=== PATIENT | female | born 1990 | race Caucasian/White ===

== ENCOUNTER 2020-02-25 11:58 | Day surgery (SDC) | payer BC, OTHER ==
[2020-02-25] MEDS ORDERED: Sodium Chloride 0.9% 1,000 ML IV ONE ×2 (12:14→13:07)
[2020-02-25] MEDS ORDERED: Ketorolac 30 MG/ML SDV IVPUSH ONE (12:14)
--- NOTE | 2020-02-25 12:20 | EDM.PDOC ---
ED HPI GENERAL MEDICAL PROBLEM - General Chief Complaint: Abdominal Pain Stated Complaint: STOMACH PAIN Time Seen by Provider: 02/25/20 12:00 Source of Information: Reports: Patient History Limitations: Reports: No Limitations - History of Present Illness INITIAL COMMENTS - FREE TEXT/NARRATIVE: HISTORY AND PHYSICAL: History of present illness: Patient is a 30-year-old female who presents to the emergency room with complaints of low pelvic discomfort that radiates to her umbilicus occasionally. She states the pain moves, occasionally in the left lower quadrant, then the right lower quadrant and will radiate to the umbilicus. The pain is been ongoing for approximately a week and describes it as intermittent. Sometimes the pain will last several minutes to hours, but has been consistent over the past 18 hours. She has a family history of ovarian cysts and patient denies any fever, chills, headache, change in vision, syncope or near syncope. Denies any chest pain, back pain, shortness of breath or cough. Denies any nausea, vomiting, diarrhea, constipation or dysuria. Has not noted any blood in urine or stool. Denies any concerns for STDs, vaginal discharge or lesions. Patient has been eating and drinking appropriately. Review of systems: As per history of present illness and below otherwise all systems reviewed and negative. Past medical history: As per history of present illness and as reviewed below otherwise noncontributory. Surgical history: As per history of present illness and as reviewed below otherwise noncontributory. Social history: See social history for further information Family history: As per history of present illness and as reviewed below otherwise noncontributory. Physical exam: General: Well-developed and well-nourished 30-year-old female. Alert and oriented. Nontoxic-appearing and in no acute distress. HEENT: Atraumatic, normocephalic, pupils equal and reactive bilaterally, negative for conjunctival pallor or scleral icterus, mucous membranes moist, trachea midline. No drooling or trismus noted. No meningeal signs. No hot potato voice noted. Lungs: Clear to auscultation, breath sounds equal bilaterally, chest nontender. Heart: S1S2, regular rate and rhythm without overt murmur Abdomen: Soft, nondistended, generalized tenderness to the left and right lower quadrants. + rebound tenderness. Negative for masses or hepatosplenomegaly. Negative for costovertebral tenderness. Pelvis: Stable nontender. Skin: Intact, warm, dry. No lesions or rashes noted. Extremities: Atraumatic, moves all extremities per self without difficulty or deficits, negative for cords or calf pain. Neurovascular unremarkable. Neuro: Awake, alert, oriented. Cranial nerves II through XII unremarkable. Cerebellum unremarkable. Motor and sensory unremarkable throughout. Exam nonfocal. Notes: She declines wanting anything for pain at this time, stating she took acetaminophen prior to arrival and is comfortable. Ultrasound shows no abnormalities, cysts or free fluid. Due to the diffuse abdominal pain and early leukocytosis I will get a CT of the abdomen and pelvis. Appendix appears slightly prominent in size surrounding inflammatory changes. I did re-evaluate the patient and she is more tender in the right lower quadrant now and becoming increasingly uncomfortable while laying flat. I did offer to give her some pain medication, she declines. Dr. Li, the general surgeon on-call was consulted on this case, he will review and come evaluate the patient. 1550: Dr Li here to talk/evaluate patient. Diagnostics: CBC, CMP, UA, HCGU, Lipase, Transvaginal Non-OB U/S, CT abdomen pelvis Therapeutics: IV fluids Impression: Appendicitis Plan: To OR with Dr Li Duration: Day(s): Location: Reports: Abdomen abd Pain Score (Numeric/FACES): 5 - Related Data Allergies Allergy/AdvReac Type Severity Reaction Status Date / Time Penicillins Allergy Nausea and Verified 02/25/20 12:12 Vomiting Home Meds: Home Meds norethindrone-e.estradioL-iron [Taytulla 1 mg-20 Mcg Capsule] 1 each PO DAILY 02/25/20 [History] Past Medical History HEENT History: Reports: None Cardiovascular History: Reports: None Respiratory History: Reports: Asthma Other Respiratory History: asthma as a child Gastrointestinal History: Reports: None Genitourinary History: Reports: Other (See Below) Other Genitourinary History: bladder surgery as a child, unknown type REMOTELY OPERATED VEHICLE History: Reports: None Musculoskeletal History: Reports: None Neurological History: Reports: None Psychiatric History: Reports: None Endocrine/Metabolic History: Reports: None Hematologic History: Reports: None Immunologic History: Reports: None Oncologic (Cancer) History: Reports: None Dermatologic History: Reports: Eczema - Past Surgical History Head Surgeries/Procedures: Reports: None Social & Family History - Family History Family Medical History: Noncontributory - Recreational Drug Use Recreational Drug Use: No ED ROS GENERAL - Review of Systems Review Of Systems: Comprehensive ROS is negative, except as noted in HPI. ED EXAM, GI/ABD - Physical Exam Exam: See Below (See dictation) Course - Vital Signs Last Recorded V/S: Last Vital Signs Temp 95.7 F L 02/25/20 12:06 Pulse 86 02/25/20 12:06 Resp 16 02/25/20 12:06 BP 115/72 02/25/20 12:06 Pulse Ox 98 02/25/20 12:06 - Orders/Labs/Meds Orders: Active Orders 24 hr Category Date Time Status Admission Status [Patient Status] [ADT] Stat ADT 02/25/20 15:59 Active Antiembolic Devices [RC] PER UNIT ROUTINE Care 02/25/20 16:12 Active Insert Urinary Catheter [OM.PC] Timed Care 02/25/20 16:12 Ordered Oxygen Therapy [RC] ASDIRECTED Care 02/25/20 16:12 Active RT Incentive Spirometry [RC] Q1HWA Care 02/25/20 16:12 Active Skin Preparation [RC] .PREOP Care 02/25/20 16:12 Active Urinary Catheter Assessment [RC] ASDIRECTED Care 02/25/20 16:12 Active Urinary Catheter Assessment [RC] ASDIRECTED Care 02/25/20 16:12 Active Urinary Catheter Assessment [RC] ASDIRECTED Care 02/25/20 16:12 Active Vital Signs [RC] PER UNIT ROUTINE Care 02/25/20 16:12 Active Nothing Per Oral Diet [DIET] Diet 02/25/20 Dinner Active Lactated Ringers [Ringers, Lactated] 1,000 ml Med 02/25/20 16:15 Active IV ASDIRECTED cefOXitin [Mefoxin in Dextrose,Iso-Osm 2 GM/50 ML] 2 gm Med 02/25/20 16:12 Active Premix Bag 1 bag IV ONETIME Antiembolic Hose [OM.PC] Routine Oth 02/25/20 16:12 Ordered Resuscitation Status Routine Resus Stat 02/25/20 16:12 Ordered Medication Orders Lactated Ringer's (Ringers, Lactated) 1,000 mls @ 125 mls/hr IV ASDIRECTED ANTHONY Last Admin: 02/25/20 16:30 Dose: 125 mls/hr Documented by: JOI Cefoxitin Sodium 2 gm/ Premix 50 mls @ 100 mls/hr IV ONETIME ONE Stop: 02/25/20 16:41 Last Admin: 02/25/20 16:30 Dose: 100 mls/hr Documented by: JOI Labs: Laboratory Tests 02/25/20 02/25/20 02/25/20 Range/Units 12:05 12:05 12:28 WBC 11.71 H (4.0-11.0) K/uL RBC 4.91 (4.30-5.90) M/uL Hgb 15.5 (12.0-16.0) g/dL Hct 45.8 (36.0-46.0) % MCV 93.3 (80.0-98.0) fL MCH 31.6 (27.0-32.0) pg MCHC 33.8 (31.0-37.0) g/dL RDW Std Deviation 41.1 (28.0-62.0) fl RDW Coeff of Ninoska 12 (11.0-15.0) % Plt Count 357 (150-400) K/uL MPV 9.30 (7.40-12.00) fL Neut % (Auto) 69.8 (48.0-80.0) % Lymph % (Auto) 21.0 (16.0-40.0) % Coke % (Auto) 5.5 (0.0-15.0) % Eos % (Auto) 3.5 (0.0-7.0) % Baso % (Auto) 0.2 (0.0-1.5) % Neut # (Auto) 8.2 H (1.4-5.7) K/uL Lymph # (Auto) 2.5 H (0.6-2.4) K/uL Coke # (Auto) 0.6 (0.0-0.8) K/uL Eos # (Auto) 0.4 (0.0-0.7) K/uL Baso # (Auto) 0.0 (0.0-0.1) K/uL Nucleated RBC % 0.0 /100WBC Nucleated RBCs # 0 K/uL Sodium (136-145) mmol/L Potassium (3.5-5.1) mmol/L Chloride (98-107) mmol/L Carbon Dioxide (21.0-32.0) mmol/L BUN (7.0-18.0) mg/dL Creatinine (0.6-1.0) mg/dL Est Cr Clr Drug Dosing mL/min Estimated GFR (MDRD) ml/min Glucose (74-106) mg/dL Calcium (8.5-10.1) mg/dL Total Bilirubin (0.2-1.0) mg/dL AST (15-37) IU/L ALT (14-63) IU/L Alkaline Phosphatase (46-116) U/L Total Protein (6.4-8.2) g/dL Albumin (3.4-5.0) g/dL Globulin (2.6-4.0) g/dL Albumin/Globulin Ratio (0.9-1.6) Lipase (73-393) U/L Urine Color YELLOW Urine Appearance CLEAR Urine pH 6.0 (5.0-8.0) Ur Specific Elfrida 1.020 (1.001-1.035) Urine Protein NEGATIVE (NEGATIVE) mg/dL Urine Glucose (UA) NEGATIVE (NEGATIVE) mg/dL Urine Ketones NEGATIVE (NEGATIVE) mg/dL Urine Occult Blood NEGATIVE (NEGATIVE) Urine Nitrite NEGATIVE (NEGATIVE) Urine Bilirubin NEGATIVE (NEGATIVE) Urine Urobilinogen 0.2 (<2.0) EU/dL Ur Leukocyte Esterase NEGATIVE (NEGATIVE) Urine HCG, Qual NEGATIVE (NEGATIVE) COVID-19 (PIETER) (NEGATIVE) 02/25/20 02/25/20 Range/Units 12:28 15:25 WBC (4.0-11.0) K/uL RBC (4.30-5.90) M/uL Hgb (12.0-16.0) g/dL Hct (36.0-46.0) % MCV (80.0-98.0) fL MCH (27.0-32.0) pg MCHC (31.0-37.0) g/dL RDW Std Deviation (28.0-62.0) fl RDW Coeff of Ninoska (11.0-15.0) % Plt Count (150-400) K/uL MPV (7.40-12.00) fL Neut % (Auto) (48.0-80.0) % Lymph % (Auto) (16.0-40.0) % Coke % (Auto) (0.0-15.0) % Eos % (Auto) (0.0-7.0) % Baso % (Auto) (0.0-1.5) % Neut # (Auto) (1.4-5.7) K/uL Lymph # (Auto) (0.6-2.4) K/uL Coke # (Auto) (0.0-0.8) K/uL Eos # (Auto) (0.0-0.7) K/uL Baso # (Auto) (0.0-0.1) K/uL Nucleated RBC % /100WBC Nucleated RBCs # K/uL Sodium 137 (136-145) mmol/L Potassium 3.8 (3.5-5.1) mmol/L Chloride 102 (98-107) mmol/L Carbon Dioxide 25.1 (21.0-32.0) mmol/L BUN 7 (7.0-18.0) mg/dL Creatinine 0.9 (0.6-1.0) mg/dL Est Cr Clr Drug Dosing 104.01 mL/min Estimated GFR (MDRD) > 60.0 ml/min Glucose 95 (74-106) mg/dL Calcium 9.2 (8.5-10.1) mg/dL Total Bilirubin 0.5 (0.2-1.0) mg/dL AST 24 (15-37) IU/L ALT 35 (14-63) IU/L Alkaline Phosphatase 68 (46-116) U/L Total Protein 7.9 (6.4-8.2) g/dL Albumin 3.8 (3.4-5.0) g/dL Globulin 4.1 H (2.6-4.0) g/dL Albumin/Globulin Ratio 0.9 (0.9-1.6) Lipase 108 (73-393) U/L Urine Color Urine Appearance Urine pH (5.0-8.0) Ur Specific Elfrida (1.001-1.035) Urine Protein (NEGATIVE) mg/dL Urine Glucose (UA) (NEGATIVE) mg/dL Urine Ketones (NEGATIVE) mg/dL Urine Occult Blood (NEGATIVE) Urine Nitrite (NEGATIVE) Urine Bilirubin (NEGATIVE) Urine Urobilinogen (<2.0) EU/dL Ur Leukocyte Esterase (NEGATIVE) Urine HCG, Qual (NEGATIVE) COVID-19 (PIETER) NEGATIVE (NEGATIVE) Meds: Medications Generic Name Dose Route Start Last Admin Trade Name Freq PRN Reason Stop Dose Admin Lactated Ringer's 1,000 mls @ 125 mls/hr 02/25/20 16:15 02/25/20 16:30 Ringers, Lactated IV 125 mls/hr ASDIRECTED ANTHONY Administration Cefoxitin Sodium 2 gm/ Premix 50 mls @ 100 mls/hr 02/25/20 16:12 02/25/20 16:30 IV 02/25/20 16:41 100 mls/hr ONETIME ONE Administration Discontinued Medications Generic Name Dose Route Start Last Admin Trade Name Freq PRN Reason Stop Dose Admin Sodium Chloride 1,000 mls @ 999 mls/hr 02/25/20 12:14 Normal Saline IV 02/25/20 13:14 STAT ONE Sodium Chloride 1,000 mls @ 999 mls/hr 02/25/20 13:07 02/25/20 13:25 Normal Saline IV 02/25/20 14:07 999 mls/hr STAT ONE Administration Iopamidol 75 ml 02/25/20 14:40 02/25/20 14:41 Isovue Multipack-370 (76%) IVPUSH 02/25/20 14:41 75 ml ONETIME STA Administration Ketorolac Tromethamine 30 mg 02/25/20 12:14 Toradol IVPUSH 02/25/20 12:15 ONETIME ONE Morphine Sulfate 2 mg 02/25/20 16:17 02/25/20 16:24 Morphine IVPUSH 02/25/20 16:18 2 mg ONETIME ONE Administration Ondansetron HCl 4 mg 02/25/20 16:17 02/25/20 16:23 Zofran IVPUSH 02/25/20 16:18 4 mg ONETIME ONE Administration Departure - Departure Time of Disposition: 16:33 Disposition: Home, Self-Care 01 Clinical Impression: Appendicitis Qualifiers: Appendicitis type: acute appendicitis Acute appendicitis type: with localized peritonitis Appendicitis gangrene presence: without gangrene Appendicitis perforation presence: without perforation Appendicitis abscess presence: without abscess Qualified Code(s): K35.30 - Acute appendicitis with localized peritonitis, without perforation or gangrene - Discharge Information Sepsis Event Note (ED) - Evaluation Sepsis Screening Result: No Definite Risk - Focused Exam Vital Signs: Vital Signs Temp Pulse Resp BP Pulse Ox 02/25/20 12:06 95.7 F L 86 16 115/72 98 - My Orders Last 24 Hours: My Active Orders 02/25/20 15:59 Admission Status [Patient Status] [ADT] Stat - Assessment/Plan Last 24 Hours: My Active Orders 02/25/20 15:59 Admission Status [Patient Status] [ADT] Stat
[2020-02-25 13:04] LABS: BLOOD UREA NITROGEN,BUN 7 mg/dL (7.0-18.0); CARBON DIOXIDE,CO2 25.1 mmol/L (21.0-32.0); CHLORIDE,CL 102 mmol/L (98-107); GLUCOSE RANDOM 95 mg/dL (74-106); LIPASE 108 U/L (73-393); POTASSIUM,K 3.8 mmol/L (3.5-5.1); SODIUM,NA 137 mmol/L (136-145)
--- NOTE | 2020-02-25 13:45 | US ---
Pelvic ultrasound: Multiple real-time images were obtained transvaginally. Comparison: No prior pelvic imaging. Findings: Uterus is anteverted. No myometrial abnormality is seen. Endometrial thickness is 6 mm which is within normal limits. Right and left ovaries show follicles without larger cyst or solid abnormality. No free fluid is appreciated. Measurements: Uterus: Length 6.8 cm, AP height 3.1 cm,transverse width 3.9 cm Right ovary: 2.0 x 1.2 x 2.1 cm Left ovary: 1.4 x 3.0 x 1.1 cm Impression: 1. No abnormality is identified on pelvic ultrasound exam. Diagnostic code #1 This report was dictated in MDT
[2020-02-25] MEDS ORDERED: Iopamidol 755 MG/ML 500 ML Multipack Bottle IVPUSH STA (14:40)
--- NOTE | 2020-02-25 15:12 | CT ---
CT abdomen and pelvis Technique: Multiple axial sections were obtained from above the dome of the diaphragm inferiorly through the pubic symphysis. Intravenous contrast was utilized. No oral contrast has been given. Comparison: Prior pelvic ultrasound exam performed earlier on the same day (12:50 PM). Findings: Visualized lung bases show nothing acute. Liver contains no focal parenchymal abnormality. Spleen appears normal. Adrenal glands show no nodule. Kidneys show symmetric contrast enhancement without hydronephrosis or mass. Pancreas shows no discrete abnormality. Aorta shows no aneurysm. Gallbladder contains no calcified gallstones. No retroperitoneal adenopathy or mesenteric abnormalities are seen. Appendix appears slightly prominent in size with surrounding inflammatory change which is felt compatible with early appendicitis. Multiple small lymph nodes are seen within the right lower abdomen most likely reactive from the appendicitis. No additional pelvic abnormality is seen. No free fluid is seen. Bone window settings were reviewed which appear within normal limits for the patient's age. Impression: 1. Mildly enlarged appendix with mild surrounding inflammatory change suspicious for early appendicitis. 2. No additional abnormality is seen on CT study of the abdomen and pelvis. Diagnostic code #5 This report was dictated in MDT
[2020-02-25] MEDS ORDERED: cefOXitin 2 GM in Premix Bag 1 BAG IV ONE (16:12)
[2020-02-25] MEDS ORDERED: Lactated Ringers 1,000 ML IV SCH (16:15)
[2020-02-25] MEDS ORDERED: Morphine 2 MG/ML SYRINGE IVPUSH ONE (16:17)
[2020-02-25] MEDS ORDERED: Ondansetron 4 MG/2 ML SDV IVPUSH ONE (16:17)
--- NOTE | 2020-02-25 16:18 | PCM.CONS ---
H&P History of Present Illness - General Date of Service: 02/25/20 Admit Problem/Dx: Admission Diagnosis/Problem Admission Diagnosis/Problem Appendicitis Source of Information: Patient History Limitations: Reports: No Limitations - History of Present Illness Initial Comments - Free Text/Narative: Patient is a 30-year-old female who presented to the emergency room today comp laining of lower abdominal pain. Patient states she has been having intermittent discomfort for the last 6 days. It became progressively worse last night about 6 PM. While she has been in the emergency room the pain has become more intense and migrated to the right lower quadrant. She hasn't really had any significant nausea or vomiting, although relates her appetite is poor. She did have something to eat about 8 AM. Denies any fever or chills. No change in bowel habits. Symptom Onset Date: 02/24/20 Symptom Onset Time: 18:00 Location: Reports: Abdomen Quality: Reports: Pressure, Throbbing Severity: Moderate Improves with: Reports: Rest Worsens with: Reports: Movement Associated Symptoms: Reports: Loss of Appetite. Denies: Nausea/Vomiting, Shortness of Breath, Syncope abd Pain Score (Numeric/FACES): 5 - Related Data Allergies/Adverse Reactions: Allergies Allergy/AdvReac Type Severity Reaction Status Date / Time Penicillins Allergy Nausea and Verified 02/25/20 12:12 Vomiting Home Medications: Home Meds norethindrone-e.estradioL-iron [Taytulla 1 mg-20 Mcg Capsule] 1 each PO DAILY 02/25/20 [History] Past Medical History HEENT History: Reports: None Cardiovascular History: Reports: None Respiratory History: Reports: Asthma Other Respiratory History: asthma as a child Gastrointestinal History: Reports: None Genitourinary History: Reports: Other (See Below) Other Genitourinary History: bladder surgery as a child, unknown type COMMUNITY RELATIONS LIAISON History: Reports: None Musculoskeletal History: Reports: None Neurological History: Reports: None Psychiatric History: Reports: None Endocrine/Metabolic History: Reports: None Hematologic History: Reports: None Immunologic History: Reports: None Oncologic (Cancer) History: Reports: None Dermatologic History: Reports: Eczema - Past Surgical History Head Surgeries/Procedures: Reports: None Social & Family History - Family History Family Medical History: Noncontributory - Recreational Drug Use Recreational Drug Use: No H&P Review of Systems - Review of Systems: Review Of Systems: See Below General: Reports: Decreased Appetite. Denies: Fever, Chills HEENT: Reports: No Symptoms Pulmonary: Denies: Shortness of Breath, Wheezing, Pleuritic Chest Pain Cardiovascular: Denies: Chest Pain, Palpitations, Dyspnea on Exertion Gastrointestinal: Reports: Abdominal Pain, Anorexia, Decreased Appetite. Denies: Black Stool, Bloody Stool, Constipation, Diarrhea, Difficulty Swallowi ng, Distension, Flatus, Hematemesis, Hematochezia Genitourinary: Denies: Dysuria, Frequency, Burning, Pain, Urgency Musculoskeletal: Reports: No Symptoms Skin: Denies: Cyanosis, Jaundice, Mottled, Pallor, Diaphoresis Psychiatric: Reports: No Symptoms Neurological: Reports: No Symptoms Hematologic/Lymphatic: Reports: No Symptoms Immunologic: Reports: No Symptoms Exam - Exam Exam: See Below - Vital Signs Vital Signs: Last Vital Signs Temp 95.7 F L 02/25/20 12:06 Pulse 86 02/25/20 12:06 Resp 16 02/25/20 12:06 BP 115/72 02/25/20 12:06 Pulse Ox 98 02/25/20 12:06 Weight: 170 lb - Exam General: Alert, Oriented, Cooperative, Mild Distress HEENT: Conjunctiva Clear, Nares Patent, Pupils Equal, Pupils Reactive. No: Scleral Icterus Neck: Supple, Trachea Midline Lungs: Clear to Auscultation, Normal Respiratory Effort Cardiovascular: Regular Rate, Regular Rhythm, Normal S1, Normal S2. No: Bradycardia, Tachycardia, Systolic Murmur GI/Abdominal Exam: Soft, No Distention, Rebound, Tender (Right lower quadrant over McBurney's point), Abnormal Bowel Sounds (Hypoactive). No: Guarding, Rigid, Hernia, Mass, Hepatomegaly (Female) Exam: Deferred Rectal (Female) Exam: Deferred Back Exam: Normal Inspection Extremities: Normal Inspection, Normal Range of Motion, Non-Tender Peripheral Pulses: 4+: Posterior Tibial (L), Posterior Tibial (R), Dorsalis Pedis (L), Dorsalis Pedis (R) Skin: Warm, Dry, Intact Neuro Extensive - Mental Status: Alert, Oriented x3, Normal Mood/Affect, Normal Cognition Psychiatric: Alert, Normal Affect, Normal Mood - Patient Data Lab Results Last 24 hrs: Laboratory Results - last 24 hr 02/25/20 02/25/2020 Range/Units 12:05 12:05 12:28 WBC 11.71 H (4.0-11.0) K/uL RBC 4.91 (4.30-5.90) M/uL Hgb 15.5 (12.0-16.0) g/dL Hct 45.8 (36.0-46.0) % MCV 93.3 (80.0-98.0) fL MCH 31.6 (27.0-32.0) pg MCHC 33.8 (31.0-37.0) g/dL RDW Std Deviation 41.1 (28.0-62.0) fl RDW Coeff of Ninoska 12 (11.0-15.0) % Plt Count 357 (150-400) K/uL MPV 9.30 (7.40-12.00) fL Neut % (Auto) 69.8 (48.0-80.0) % Lymph % (Auto) 21.0 (16.0-40.0) % Mineral % (Auto) 5.5 (0.0-15.0) % Eos % (Auto) 3.5 (0.0-7.0) % Baso % (Auto) 0.2 (0.0-1.5) % Neut # (Auto) 8.2 H (1.4-5.7) K/uL Lymph # (Auto) 2.5 H (0.6-2.4) K/uL Mineral # (Auto) 0.6 (0.0-0.8) K/uL Eos # (Auto) 0.4 (0.0-0.7) K/uL Baso # (Auto) 0.0 (0.0-0.1) K/uL Nucleated RBC % 0.0 /100WBC Nucleated RBCs # 0 K/uL Sodium (136-145) mmol/L Potassium (3.5-5.1) mmol/L Chloride (98-107) mmol/L Carbon Dioxide (21.0-32.0) mmol/L BUN (7.0-18.0) mg/dL Creatinine (0.6-1.0) mg/dL Est Cr Clr Drug Dosing mL/min Estimated GFR (MDRD) ml/min Glucose (74-106) mg/dL Calcium (8.5-10.1) mg/dL Total Bilirubin (0.2-1.0) mg/dL AST (15-37) IU/L ALT (14-63) IU/L Alkaline Phosphatase (46-116) U/L Total Protein (6.4-8.2) g/dL Albumin (3.4-5.0) g/dL Globulin (2.6-4.0) g/dL Albumin/Globulin Ratio (0.9-1.6) Lipase (73-393) U/L Urine Color YELLOW Urine Appearance CLEAR Urine pH 6.0 (5.0-8.0) Ur Specific [place] 1.020 (1.001-1.035) Urine Protein NEGATIVE (NEGATIVE) mg/dL Urine Glucose (UA) NEGATIVE (NEGATIVE) mg/dL Urine Ketones NEGATIVE (NEGATIVE) mg/dL Urine Occult Blood NEGATIVE (NEGATIVE) Urine Nitrite NEGATIVE (NEGATIVE) Urine Bilirubin NEGATIVE (NEGATIVE) Urine Urobilinogen 0.2 (<2.0) EU/dL Ur Leukocyte Esterase NEGATIVE (NEGATIVE) Urine HCG, Qual NEGATIVE (NEGATIVE) COVID-19 (PIETER) (NEGATIVE) 02/25/20 02/25/20 Range/Units 12:28 15:25 WBC (4.0-11.0) K/uL RBC (4.30-5.90) M/uL Hgb (12.0-16.0) g/dL Hct (36.0-46.0) % MCV (80.0-98.0) fL MCH (27.0-32.0) pg MCHC (31.0-37.0) g/dL RDW Std Deviation (28.0-62.0) fl RDW Coeff of Ninoska (11.0-15.0) % Plt Count (150-400) K/uL MPV (7.40-12.00) fL Neut % (Auto) (48.0-80.0) % Lymph % (Auto) (16.0-40.0) % Mineral % (Auto) (0.0-15.0) % Eos % (Auto) (0.0-7.0) % Baso % (Auto) (0.0-1.5) % Neut # (Auto) (1.4-5.7) K/uL Lymph # (Auto) (0.6-2.4) K/uL Mineral # (Auto) (0.0-0.8) K/uL Eos # (Auto) (0.0-0.7) K/uL Baso # (Auto) (0.0-0.1) K/uL Nucleated RBC % /100WBC Nucleated RBCs # K/uL Sodium 137 (136-145) mmol/L Potassium 3.8 (3.5-5.1) mmol/L Chloride 102 (98-107) mmol/L Carbon Dioxide 25.1 (21.0-32.0) mmol/L BUN 7 (7.0-18.0) mg/dL Creatinine 0.9 (0.6-1.0) mg/dL Est Cr Clr Drug Dosing 104.01 mL/min Estimated GFR (MDRD) > 60.0 ml/min Glucose 95 (74-106) mg/dL Calcium 9.2 (8.5-10.1) mg/dL Total Bilirubin 0.5 (0.2-1.0) mg/dL AST 24 (15-37) IU/L ALT 35 (14-63) IU/L Alkaline Phosphatase 68 (46-116) U/L Total Protein 7.9 (6.4-8.2) g/dL Albumin 3.8 (3.4-5.0) g/dL Globulin 4.1 H (2.6-4.0) g/dL Albumin/Globulin Ratio 0.9 (0.9-1.6) Lipase 108 (73-393) U/L Urine Color Urine Appearance Urine pH (5.0-8.0) Ur Specific [place] (1.001-1.035) Urine Protein (NEGATIVE) mg/dL Urine Glucose (UA) (NEGATIVE) mg/dL Urine Ketones (NEGATIVE) mg/dL Urine Occult Blood (NEGATIVE) Urine Nitrite (NEGATIVE) Urine Bilirubin (NEGATIVE) Urine Urobilinogen (<2.0) EU/dL Ur Leukocyte Esterase (NEGATIVE) Urine HCG, Qual (NEGATIVE) COVID-19 (PIETER) NEGATIVE (NEGATIVE) Result Diagrams: 02/25/20 12:28 02/25/20 12:28 Sepsis Event Note - Evaluation Sepsis Screening Result: No Definite Risk - Focused Exam Vital Signs: Vital Signs Temp Pulse Resp BP Pulse Ox 02/25/20 12:06 95.7 F L 86 16 115/72 98 Date Exam was Performed: 02/25/20 Time Exam was Performed: 16:13 Consult PN Assessment/Plan Procedures: Procedures EMERGENCY DEPT VISIT (04/28/16) (1) Right lower quadrant abdominal pain SNOMED Code(s): 591125489 Code(s): R10.31 - RIGHT LOWER QUADRANT PAIN Priority: High Current Visit: Yes (2) Decreased appetite SNOMED Code(s): 89457101 Code(s): R63.0 - ANOREXIA Priority: Medium Current Visit: Yes (3) Appendicitis SNOMED Code(s): 38244478 Code(s): K37 - UNSPECIFIED APPENDICITIS Priority: High Current Visit: Yes Qualifiers: Appendicitis type: acute appendicitis Acute appendicitis type: with localized peritonitis Appendicitis gangrene presence: without gangrene Appendicitis perforation presence: without perforation Appendicitis abscess presence: without abscess Qualified Code(s): K35.30 - Acute appendicitis with localized peritonitis, without perforation or gangrene Problem List Initiated/Reviewed/Updated: Yes My Orders Last 24 Hours: My Active Orders 02/25/20 Dinner Nothing Per Oral Diet [DIET] 02/25/20 16:12 Antiembolic Devices [RC] PER UNIT ROUTINE Insert Urinary Catheter [OM.PC] Timed Oxygen Therapy [RC] ASDIRECTED RT Incentive Spirometry [RC] Q1HWA Skin Preparation [RC] .PREOP Urinary Catheter Assessment [RC] ASDIRECTED Urinary Catheter Assessment [RC] ASDIRECTED Urinary Catheter Assessment [RC] ASDIRECTED Vital Signs [RC] PER UNIT ROUTINE cefOXitin [Mefoxin in Dextrose,Iso-Osm 2 GM/50 ML] 2 gm Premix Bag 1 bag IV ONETIME Antiembolic Hose [OM.PC] Routine Resuscitation Status Routine 02/25/20 16:15 Lactated Ringers @ 125 MLS/HR(1000ml) Lactated Ringers [Ringers, Lactated] 1,000 ml IV ASDIRECTED Plan: CT scan suggests an early appendicitis. Her physical exam is certainly consistent with an early appendicitis. Laparoscopic appendectomy, possible open appendectomy. Both operative procedures, along with the risks, including, but not limited to, bleeding, infection, pneumonia, deep venous thrombosis, pulmonary emboli, myocardial infarction, and adjacent organ injury have been reviewed with the patient who voices understanding, offers no questions and agrees to proceed.
[2020-02-25] MEDS ORDERED: Midazolam 1 MG/ML 2 ML SDV ONE (16:30)
[2020-02-25] MEDS ORDERED: Rocuronium Bromide 50 MG/5 ML Syringe ONE (16:30)
[2020-02-25] MEDS ORDERED: Propofol 200 MG/20 ML SDV ONE (16:30)
[2020-02-25] MEDS ORDERED: Sugammadex Sodium 200 MG/2 ML VIAL ONE (16:32)
[2020-02-25] MEDS ORDERED: fentaNYL 250 MCG/5 ML SDV ONE (16:32)
[2020-02-25] MEDS ORDERED: Ondansetron 4 MG/2 ML SDV ONE (16:34)
[2020-02-25] MEDS ORDERED: Bupivacaine 0.5% 10 ML SDV ONE (16:45)
[2020-02-25] MEDS ORDERED: ceFAZolin 1 GM Vial ONE (16:45)
--- NOTE | 2020-02-25 16:54 | PCM.PREANE ---
Preanesthetic Assessment - Anesthesia/Transfusion/Family Hx Anesthesia History: Prior Anesthesia Without Reaction Family History of Anesthesia Reaction: No Transfusion History: No Prior Transfusion(s) - Review of Systems General: No Symptoms Pulmonary: No Symptoms Cardiovascular: No Symptoms Gastrointestinal: Abdominal Pain Neurological: No Symptoms Other: Reports: None - Physical Assessment NPO Status Date: 02/25/20 NPO Status Time: 14:00 (contrast) Vital Signs: Last Vital Signs Temp 35.4 C L 02/25/20 12:06 Pulse 86 02/25/20 12:06 Resp 16 02/25/20 12:06 BP 115/72 02/25/20 12:06 Pulse Ox 98 02/25/20 12:06 Height: 5 ft 11 in Weight: 77.111 kg ASA Class: 1E Mental Status: Alert & Oriented x3 Airway Class: Mallampati = 1 Dentition: Reports: Normal Dentition Thyro-Mental Finger Breadths: 3 ROM/Head Extension: Full Lungs: Clear to Auscultation, Normal Respiratory Effort Cardiovascular: Regular Rate, Regular Rhythm - Lab Values: Laboratory Last Values WBC 11.71 K/uL (4.0-11.0) H 02/25/20 12:28 RBC 4.91 M/uL (4.30-5.90) 02/25/20 12:28 Hgb 15.5 g/dL (12.0-16.0) 02/25/20 12:28 Hct 45.8 % (36.0-46.0) 02/25/20 12:28 MCV 93.3 fL (80.0-98.0) 02/25/20 12:28 MCH 31.6 pg (27.0-32.0) 02/25/20 12:28 MCHC 33.8 g/dL (31.0-37.0) 02/25/20 12:28 RDW Std Deviation 41.1 fl (28.0-62.0) 02/25/20 12:28 RDW Coeff of Ninoska 12 % (11.0-15.0) 02/25/20 12:28 Plt Count 357 K/uL (150-400) 02/25/20 12:28 MPV 9.30 fL (7.40-12.00) 02/25/20 12:28 Neut % (Auto) 69.8 % (48.0-80.0) 02/25/20 12:28 Lymph % (Auto) 21.0 % (16.0-40.0) 02/25/20 12:28 [place] % (Auto) 5.5 % (0.0-15.0) 02/25/20 12:28 Eos % (Auto) 3.5 % (0.0-7.0) 02/25/20 12: Baso % (Auto) 0.2 % (0.0-1.5) 02/25/20 12:28 Neut # (Auto) 8.2 K/uL (1.4-5.7) H 02/25/20 12: Lymph # (Auto) 2.5 K/uL (0.6-2.4) H 02/25/20 12: [place] # (Auto) 0.6 K/uL (0.0-0.8) 02/25/20 12: Eos # (Auto) 0.4 K/uL (0.0-0.7) 02/25/20 12: Baso # (Auto) 0.0 K/uL (0.0-0.1) 02/25/20 12: Nucleated RBC % 0.0 /100WBC 02/25/20 12: Nucleated RBCs # 0 K/uL 02/25/20 12:28 Sodium 137 mmol/L (136-145) 02/25/20 12:28 Potassium 3.8 mmol/L (3.5-5.1) 02/25/20 12: Chloride 102 mmol/L (98-107) 02/25/20 12: Carbon Dioxide 25.1 mmol/L (21.0-32.0) 02/25/20 12:28 BUN 7 mg/dL (7.0-18.0) 02/25/20 12:28 Creatinine 0.9 mg/dL (0.6-1.0) 02/25/20 12:28 Est Cr Clr Drug Dosing 104.01 mL/min 02/25/20 12:28 Estimated GFR (MDRD) > 60.0 ml/min 02/25/20 12:28 Glucose 95 mg/dL (74-106) 02/25/20 12:28 Calcium 9.2 mg/dL (8.5-10.1) 02/25/20 12:28 Total Bilirubin 0.5 mg/dL (0.2-1.0) 02/25/20 12:28 AST 24 IU/L (15-37) 02/25/20 12:28 ALT 35 IU/L (14-63) 02/25/20 12:28 Alkaline Phosphatase 68 U/L (46-116) 02/25/20 12:28 Total Protein 7.9 g/dL (6.4-8.2) 02/25/20 12:28 Albumin 3.8 g/dL (3.4-5.0) 02/25/20 12:28 Globulin 4.1 g/dL (2.6-4.0) H 02/25/20 12:28 Albumin/Globulin Ratio 0.9 (0.9-1.6) 02/25/20 12:28 Lipase 108 U/L (73-393) 02/25/20 12:28 Urine Color YELLOW 02/25/20 12:05 Urine Appearance CLEAR 02/25/20 12:05 Urine pH 6.0 (5.0-8.0) 02/25/20 12:05 Ur Specific [place] 1.020 (1.001-1.035) 02/25/20 12:05 Urine Protein NEGATIVE mg/dL (NEGATIVE) 02/25/20 12:05 Urine Glucose (UA) NEGATIVE mg/dL (NEGATIVE) 02/25/20 12:05 Urine Ketones NEGATIVE mg/dL (NEGATIVE) 02/25/20 12:05 Urine Occult Blood NEGATIVE (NEGATIVE) 02/25/20 12:05 Urine Nitrite NEGATIVE (NEGATIVE) 02/25/20 12:05 Urine Bilirubin NEGATIVE (NEGATIVE) 02/25/20 12:05 Urine Urobilinogen 0.2 EU/dL (<2.0) 02/25/20 12:05 Ur Leukocyte Esterase NEGATIVE (NEGATIVE) 02/25/20 12:05 Urine HCG, Qual NEGATIVE (NEGATIVE) 02/25/20 12:05 COVID-19 (PIETER) NEGATIVE (NEGATIVE) 02/25/20 15:25 - Allergies Allergies/Adverse Reactions: Allergies Allergy/AdvReac Type Severity Reaction Status Date / Time Penicillins Allergy Nausea and Verified 02/25/20 12:12 Vomiting - Acknowledgements Anesthesia Type Planned: General Anesthesia Pt an Appropriate Candidate for the Planned Anesthesia: Yes Alternatives and Risks of Anesthesia Discussed w Pt/Guardian: Yes Pt/Guardian Understands and Agrees with Anesthesia Plan: Yes PreAnesthesia Questionnaire HEENT History: Reports: None Cardiovascular History: Reports: None Respiratory History: Reports: Asthma Other Respiratory History: asthma as a child Gastrointestinal History: Reports: None Genitourinary History: Reports: Other (See Below) Other Genitourinary History: bladder surgery as a child, unknown type SOLID WASTE ANALYST History: Reports: None Musculoskeletal History: Reports: None Neurological History: Reports: None Psychiatric History: Reports: None Endocrine/Metabolic History: Reports: None Hematologic History: Reports: None Immunologic History: Reports: None Oncologic (Cancer) History: Reports: None Dermatologic History: Reports: Eczema - Past Surgical History Head Surgeries/Procedures: Reports: None - SUBSTANCE USE Smoking Status *Q: Never Smoker Tobacco Use Within Last Twelve Months: No Recreational Drug Use History: No - HOME MEDS Home Medications: Home Meds norethindrone-e.estradioL-iron [Taytulla 1 mg-20 Mcg Capsule] 1 each PO DAILY 02/25/20 [History] - CURRENT (IN HOUSE) MEDS Current Meds: Current Medications Lactated Ringer's (Ringers, Lactated) 1,000 mls @ 125 mls/hr IV ASDIRECTED [facility] Last Admin: 02/25/20 16:30 Dose: 125 mls/hr Documented by: Discontinued Medications Bupivacaine HCl (Sensorcaine-Mpf 0.5%) Confirm Administered Dose 10 ml .ROUTE .STK-MED ONE Stop: 02/25/20 16:46 Cefazolin Sodium (Ancef) Confirm Administered Dose 1 gm .ROUTE .STK-MED ONE Stop: 02/25/20 16:46 Fentanyl (Sublimaze) Confirm Administered Dose 250 mcg .ROUTE .STK-MED ONE Stop: 02/25/20 16:33 Sodium Chloride (Normal Saline) 1,000 mls @ 999 mls/hr IV STAT ONE Stop: 02/25/20 13:14 Sodium Chloride (Normal Saline) 1,000 mls @ 999 mls/hr IV STAT ONE Stop: 02/25/20 14:07 Last Admin: 02/25/20 13:25 Dose: 999 mls/hr Documented by: Cefoxitin Sodium 2 gm/ Premix 50 mls @ 100 mls/hr IV ONETIME ONE Stop: 02/25/20 16:41 Last Admin: 02/25/20 16:30 Dose: 100 mls/hr Documented by: Iopamidol (Isovue Multipack-370 (76%)) 75 ml IVPUSH ONETIME STA Stop: 02/25/20 14:41 Last Admin: 02/25/20 14:41 Dose: 75 ml Documented by: Ketorolac Tromethamine (Toradol) 30 mg IVPUSH ONETIME ONE Stop: 02/25/20 12:15 Lidocaine HCl (Xylocaine-Mpf 1%) Confirm Administered Dose 5 ml .ROUTE .STK-MED ONE Stop: 02/25/20 16:36 Midazolam HCl (Versed 1 Mg/Ml) Confirm Administered Dose 2 mg .ROUTE .STK-MED ONE Stop: 02/25/20 16:31 Morphine Sulfate (Morphine) 2 mg IVPUSH ONETIME ONE Stop: 02/25/20 16:18 Last Admin: 02/25/20 16:24 Dose: 2 mg Documented by: Ondansetron HCl (Zofran) 4 mg IVPUSH ONETIME ONE Stop: 02/25/20 16:18 Last Admin: 02/25/20 16:23 Dose: 4 mg Documented by: Ondansetron HCl (Zofran) Confirm Administered Dose 4 mg .ROUTE .STK-MED ONE Stop: 02/25/20 16:35 Propofol (Diprivan 20 Ml) Confirm Administered Dose 200 mg .ROUTE .STK-MED ONE Stop: 02/25/20 16:31 Rocuronium [place] (Rocuronium [place]) Confirm Administered Dose 50 mg .ROUTE .STK-MED ONE Stop: 02/25/20 16:31 Sugammadex Sodium ([place]) Confirm Administered Dose 200 mg .ROUTE .STK-MED ONE Stop: 02/25/20 16:33
[2020-02-25] MEDS ORDERED: Dexamethasone 4 MG/ML 5 ML MDV ONE (17:52)
[2020-02-25] MEDS ORDERED: Glycopyrrolate 0.2 MG/ML SDV ONE (18:09)
[2020-02-25] MEDS ORDERED: Naloxone 0.4 MG/ML Syringe IVPUSH PRN (18:33)
[2020-02-25] MEDS ORDERED: 50% Dextrose in Water 50 ML Syringe IVPUSH PRN (18:33)
[2020-02-25] MEDS ORDERED: Atropine 0.1 MG/ML 10 ML Syringe IVPUSH PRN ×2 (18:33)
[2020-02-25] MEDS ORDERED: Albuterol 0.083% 2.5 MG/3 ML Neb Soln NEB PRN (18:33)
[2020-02-25] MEDS ORDERED: EPINEPHrine 1:10,000 1 MG/10 ML Syringe IVPUSH PRN (18:33)
[2020-02-25] MEDS ORDERED: Ketorolac 30 MG/ML SDV IVPUSH PRN (18:36)
[2020-02-25] MEDS ORDERED: Morphine 10 MG/ML Syringe IVPUSH PRN (18:37)
[2020-02-25] MEDS ORDERED: Ondansetron 4 MG/2 ML SDV IVPUSH PRN (18:37)
--- NOTE | 2020-02-25 18:43 | PCM.OPNOTE ---
- General Post-Op/Procedure Note Date of Surgery/Procedure: 02/25/20 Operative Procedure(s): Laparoscopic appendectomy Pre Op Diagnosis: Acute abdomen Post-Op Diagnosis: Acute nonruptured appendicitis Anesthesia Technique: General ET Tube (ASA IE) Primary Surgeon: Dorian Li Call Center Consultant: Sudhir Saenz Fluid Replacement, Intraop: 1,000 Output, Urine Amount: 200 EBL in mLs: 10 Condition: Stable Free Text/Narrative:: Intake & Output 02/25/20 02/25/20 02/25/20 03:59 11:59 19:59 Output Total 200 Balance -200 DICTATION 676050 CPT CODE 10652
[2020-02-25] MEDS: fentaNYL 100 MCG/2 ML SDV IVPUSH PRN ×2 (18:48→18:53)
--- NOTE | 2020-02-25 19:11 | PCM.POSTAN ---
POST ANESTHESIA ASSESSMENT - MENTAL STATUS Mental Status: Alert, Oriented - VITAL SIGNS Vital Signs: Last Vital Signs Temp 36.6 C 02/25/20 18:30 Pulse 68 02/25/20 19:01 Resp 13 02/25/20 19:01 BP 105/57 L 02/25/20 19:01 Pulse Ox 95 02/25/20 19:01 - RESPIRATORY Respiratory Status: Respiratory Rate WNL, Airway Patent, O2 Saturation Stable - CARDIOVASCULAR CV Status: Pulse Rate WNL, Blood Pressure Stable - GASTROINTESTINAL GI Status: No Symptoms - POST OP HYDRATION Hydration Status: Adequate & Stable
--- NOTE | 2020-02-25 19:32 | OR ---
SURGEON: Dorian Li M.D. DATE OF PROCEDURE: 02/25/2020 OPERATION PERFORMED: Laparoscopic appendectomy. PRIMARY SURGEON: Dorian Li MD MARKET RESEARCH COORDINATOR: Electrical Assembly Technician: RUDY Carmona student. ANESTHESIA: General endotracheal. ASA CLASSIFICATION: IE. PREOPERATIVE DIAGNOSIS: Acute abdomen. POSTOPERATIVE DIAGNOSIS: Acute nonperforated appendicitis. ESTIMATED BLOOD LOSS: 10 mL. INTRAOPERATIVE FLUID REPLACEMENT: 1000 mL of crystalloid. INTRAOPERATIVE URINARY OUTPUT: 200 mL. DESCRIPTION OF PROCEDURE: The patient was taken to the operating room, placed on the operating table in the supine position. Time-out was called for appropriate identification of the patient and procedure. Sequential compression boots were placed. Following satisfactory attainment of general endotracheal anesthesia, a Johnson catheter was placed in the patient's urinary bladder. The abdomen was prepped with DuraPrep solution and sterile drapes were applied. The skin above the umbilicus was infiltrated with 0.5% Marcaine solution. Skin incision was made and deepened through the subcutaneous tissue obtaining hemostasis with the use of electrocautery. The Veress needle was introduced into the peritoneal cavity. Saline drop test was positive. Following satisfactory attainment of carbon dioxide pneumoperitoneum with the release set at 13 cm of water, 5 mm camera and port were placed through the supraumbilical incision. Under camera vision, 12 mm suprapubic and 5 mm left lower quadrant ports were placed. Each incision had preemptively been infiltrated with 0.5% Marcaine solution. After skin incisions were made, hemostasis was obtained with the use of electrocautery. The 12 mm port was placed in the suprapubic position and a 5 mm port placed in the left lower quadrant position. The appendix was retrocecal lying laterally along the peritoneal gutter. I was able to take the adhesions down to maneuver the appendix. The tip was definitely inflamed. The mesoappendix was taken down with the Harmonic scalpel. Once that had been completely mobilized, the base of the appendix was doubly ligated with 0 PDS Endoloops. The appendix was divided with Harmonic scalpel and placed promptly in an Endo Catch bag. This was maintained in situ while the right lower quadrant was irrigated with sterile saline solution. All fluid was aspirated. There was no spill of GI content and no bleeding noted. Once all the fluid was aspirated, the suprapubic port and Endo Catch containing appendix were removed under camera vision. Again, under camera vision, 5 mm left lower quadrant port was removed followed by removing the supraumbilical camera and port. Wounds were inspected for hemostasis and hemostasis obtained with the use of electrocautery. The supraumbilical and suprapubic incisions were closed in 2 layers approximating the subcutaneous tissue with 3-0 Vicryl and the skin with subcuticular 4-0 Monocryl. The left lower quadrant incision was closed with subcuticular 4-0 Monocryl. All incisions were steri-stripped and dressed with sterile Tegaderm pads. Sponge, needle, and instrument counts were all correct. Johnson catheter was removed prior to emergence from anesthesia. Following emergence from anesthesia and extubation, the patient was taken to recovery room in stable condition. RISHI WOOD /[id number]
[2020-02-25] MEDS: Lactated Ringers 1,000 ML IV SCH (20:02)
--- NOTE | 2020-02-25 20:11 | PCM48HPAN ---
Post Anesthesia Note - EVALUATION WITHIN 48HRS OF ANESTHETIC Vital Signs in Normal Range: Yes Patient Participated in Evaluation: Yes Respiratory Function Stable: Yes Airway Patent: Yes Cardiovascular Function Stable: Yes Hydration Status Stable: Yes Pain Control Satisfactory: Yes Nausea and Vomiting Control Satisfactory: Yes Mental Status Recovered: Yes Vital Signs: Last Vital Signs Temp 36.6 C 02/25/20 18:30 Pulse 68 02/25/20 19:01 Resp 13 02/25/20 19:01 BP 105/57 L 02/25/20 19:01 Pulse Ox 95 02/25/20 19:01
[2020-02-26] MEDS: Acetaminophen/HYDROcodone 325-5 MG Tab PO PRN ×2 (03:31→11:08)
[2020-02-26] MEDS: Lactated Ringers 1,000 ML IV SCH (03:34)
[2020-02-26 08:44] VITALS: BP 103/52; PULSE 72
== END 2020-02-26 11:25 | disposition home or self-care (01) ==
LOC: MW.ED 11:58 → MW.SDS 16:08 → MW.MS 16:08 → MW.SDS 02-26 11:25
PROVIDERS: ATTEND Surgery
DX: K35.80 Unspecified acute appendicitis (principal); K36 Other appendicitis; J45.909 Unspecified asthma, uncomplicated; Z11.59 Encounter for screening for other viral diseases; Z79.899 Other long term (current) drug therapy; Z88.0 Allergy status to penicillin
CPT/HCPCS: 36415; 44970; 74177; 76830; 80053; 81003; 81025; 83690; 85025; 87635; 99285; A9270; J0131; J0694; J1100; J1885; J2001; J2250; J2270; J2405; J2704; J3010; J3490; J7030; J7120; Q9967; 88304; 99283; J0690; U0002